=== PATIENT | male | born 1995 | race Caucasian/White ===

== ENCOUNTER → 2019-06-21 15:32 | Outpatient (CLI) | payer OTHER, SELFPAY ==
--- NOTE | 2019-06-21 15:33 | DI.RAD.S_ITS ---
PROCEDURE: XR CHEST 2V INDICATIONS: persistent cough TECHNIQUE: 2 views of the chest were acquired. COMPARISON: None. FINDINGS: Surgical changes and devices: None. Lungs and pleura: Increased bronchovascular markings and bilateral hilar region are seen with mild bronchial wall thickening. No definite focal infiltrate. No pleural effusions or pneumothorax. Mediastinum: Mediastinal contours are normal. Heart size is normal. Bones and chest wall: No suspicious bony abnormalities. Soft tissues appear unremarkable. IMPRESSION: Suggestion of mild reactive airway disease such as bronchitis or viral pneumonia. No focal infiltrate. Dictated by: Haris Sampson M.D. on 06/21/2019 at 15:52 Approved by: Haris Sampson M.D. on 06/21/2019 at 16:03
== END ==
PROVIDERS: PCP Family Medicine; Referring Provider Family Medicine; Visit Provider Family Medicine
DX: R05 Cough (principal)
CPT/HCPCS: 71046

== ENCOUNTER → 2019-09-20 12:03 | Outpatient (CLI) | payer OTHER, SELFPAY ==
[2019-09-22 12:08] LABS: COVID19 Sendout Not Detected (Not Detected)
== END ==
PROVIDERS: PCP Family Medicine; Visit Provider Physician Assistant
DX: R05 Cough (principal)
CPT/HCPCS: 87635